=== PATIENT | male | born 1960 | race Caucasian/White ===

== ENCOUNTER 2021-03-28 11:32 | Inpatient (IN) | payer OTHER, SELFPAY ==
[~2021-03-28] VITALS: Ht 177.8 cm; Wt 89.8 kg
[2021-03-28 11:45] VITALS: BP 117/75
[2021-03-28 14:12] LABS: BASOPHILS % (AUTO) 0.4 % (0.0-2.0); EOSINOPHILS # (AUTO) 0.1 K/uL (0-0.4); EOSINOPHILS % (AUTO) 1.4 % (0.0-4.0); HEMATOCRIT 35.4 % (36-52); HEMOGLOBIN 11.4 g/dL (12.0-18.0); LYMPHOCYTES # (AUTO) 2.5 K/uL (2.0-11.5); LYMPHOCYTES % (AUTO) 28.2 % (20.5-51.1); MEAN CORPUSCULAR HEMOGLOBIN 25 pg (27-31); MEAN CORPUSCULAR HGB CONC 32 g/dL (33-37); MEAN CORPUSCULAR VOLUME 77.3 fL (80-94); MONOCYTES # (AUTO) 1.1 K/uL (0.8-1.0); MONOCYTES % (AUTO) 12.6 % (1.7-9.3); NEUTROPHILS % (AUTO) 57.4 % (42.2-75.2); PLATELET COUNT (AUTO) 266 K/uL (140-450); RED BLOOD CELL COUNT(AUTO) 4.58 MIL/uL (4.20-6.10); RED CELL DISTRIBUTION WIDTH 17.5 % (11.6-13.7); WHITE BLOOD COUNT (AUTO) 8.8 K/uL (4.8-10.8)
[2021-03-28 14:34] LABS: ALBUMIN 3.7 g/dL (3.4-5.0); ANION GAP 13.2 (8-16); CARBON DIOXIDE 29.8 mmol/L (21-32); TOTAL BILIRUBIN 0.6 mg/dL (0.0-1.0)
[2021-03-28] MEDS ORDERED: LORazepam 2 MG/ML VIAL IVP ONE (14:40)
[2021-03-28] MEDS ORDERED: PANTOPRAZOLE 40 MG INJ VIAL IVP ONE (14:45)
[2021-03-28] MEDS ORDERED: ONDANSETRON 4 MG/2 ML VIAL IVP ONE (14:45)
[2021-03-28] MEDS ORDERED: PANTOPRAZOLE 80 MG in NACL 0.9% 100 ML IVP SCH (14:45)
[2021-03-28 15:54] LABS: APPEARANCE,URINE CLEAR (CLEAR); BILIRUBIN,URINE NEGATIVE (NEGATIVE); BLOOD, URINE NEGATIVE (NEGATIVE); COLOR,URINE YELLOW (YELLOW); LEUKOCYTE ESTERASE ,URINE NEGATIVE (NEGATIVE); NITRITE, URINE NEGATIVE (NEGATIVE); UGLUCOSE NEGATIVE (NEGATIVE)
[2021-03-28] MEDS ORDERED: PANTOPRAZOLE 40 MG INJ VIAL ONE ×2 (16:11→16:33)
[2021-03-28] MEDS ORDERED: ONDANSETRON 4 MG/2 ML VIAL ONE (16:11)
[2021-03-28] MEDS ORDERED: LORazepam 2 MG/ML VIAL ONE (16:11)
[2021-03-28] MEDS ORDERED: DEXT 5% / NACL 0.45% 1,000 ML IV ONE (16:25)
[2021-03-28] MEDS: PANTOPRAZOLE 80 MG in NACL 0.9% 100 ML IVP SCH (16:43)
--- NOTE | 2021-03-28 17:01 | NUR ---
mrsa and claribel swabbed at this time
[2021-03-28] MEDS ORDERED: ONDANSETRON 4 MG/2 ML VIAL IVP PRN (18:20)
--- NOTE | 2021-03-28 19:26 | NUR ---
resting comfortably, sister at bedside
--- NOTE | 2021-03-28 21:10 | NUR ---
MEDICATED WITH ATIVAN 1 MG SLOW IVP FOR AGITATION
[2021-03-28] MEDS ORDERED: TRAZ-344 PO (23:24)
[2021-03-28] MEDS ORDERED: TAMS0.4C96 PO (23:24)
[2021-03-28] MEDS ORDERED: QUET300T1 PO (23:24)
[2021-03-29] MEDS: PANTOPRAZOLE 80 MG in NACL 0.9% 100 ML IVP SCH ×3 (02:00→15:59)
[2021-03-29] MEDS ORDERED: PANTOPRAZOLE 40 MG INJ VIAL ONE (05:21)
--- NOTE | 2021-03-29 05:55 | NUR ---
AMBULATED TO WITH MUCH ASSIST. HAD BEEN INCONTINENT OF LARGE AMOUNT OF URINE
--- NOTE | 2021-03-29 07:05 | NUR ---
PULLED IV OUT. IS RESTLESS. ATTEMPT TO RESTART X 1, UNABLE
[2021-03-29] MEDS: LORazepam 2 MG/ML VIAL IVP PRN ×3 (08:10→22:00)
[2021-03-29 09:56] LABS: BASOPHILS % (AUTO) 0.4 % (0.0-2.0); EOSINOPHILS # (AUTO) 0.2 K/uL (0-0.4); EOSINOPHILS % (AUTO) 2.2 % (0.0-4.0); HEMATOCRIT 34.8 % (36-52); HEMOGLOBIN 11.1 g/dL (12.0-18.0); LYMPHOCYTES # (AUTO) 1.9 K/uL (2.0-11.5); LYMPHOCYTES % (AUTO) 25.4 % (20.5-51.1); MEAN CORPUSCULAR HEMOGLOBIN 25 pg (27-31); MEAN CORPUSCULAR HGB CONC 32 g/dL (33-37); MEAN CORPUSCULAR VOLUME 78.1 fL (80-94); MONOCYTES # (AUTO) 0.8 K/uL (0.8-1.0); MONOCYTES % (AUTO) 10.8 % (1.7-9.3); NEUTROPHILS # (AUTO) 4.7 K/uL (1.8-7.7); NEUTROPHILS % (AUTO) 61.2 % (42.2-75.2); PLATELET COUNT (AUTO) 227 K/uL (140-450); RED BLOOD CELL COUNT(AUTO) 4.46 MIL/uL (4.20-6.10); RED CELL DISTRIBUTION WIDTH 17.2 % (11.6-13.7); WHITE BLOOD COUNT (AUTO) 7.6 K/uL (4.8-10.8)
[2021-03-29 10:11] LABS: ALBUMIN 3.6 g/dL (3.4-5.0); ANION GAP 12.9 (8-16); POTASSIUM 3.9 mmol/L (3.5-5.1); TOTAL BILIRUBIN 0.6 mg/dL (0.0-1.0)
--- NOTE | 2021-03-29 10:51 | NUR ---
MOVED TO ER BED 11
--- NOTE | 2021-03-29 10:52 | NUR ---
RECEIVED REPORT FROM TREVOR CERON. TRANSFER OF CARE AT THIS TIME.
--- NOTE | 2021-03-29 12:42 | NUR ---
PT ALERT AND ORIENTED. NO DISTRESS NOTED. SISTER AT BEDSIDE.
--- NOTE | 2021-03-29 15:40 | NUR ---
PATIENT HAS BEEN SCREENED AND CATEGORIZED MODERATE NUTRITION RISK. PATIENT WILL BE SEEN WITHIN 3-5 DA[address] OF ADMISSION. [address]
[2021-03-29] MEDS ORDERED: HALOPERIDOL IM 5 MG/ML VIAL IM SCH (17:50)
--- NOTE | 2021-03-29 17:53 | NUR ---
174-PT VERY AGITATED, ATTEMPTING TO RE-ORIENT CAREGIVER AT BEDSIDE. PT PULLED IV. PT SOFT RESTRAINTS. 175-DR. V[place] BRADSHAW HALDOL 2MG IM ORDERED, BEHAVIORAL RESTRAINTS ORDERED.
[2021-03-29] MEDS ORDERED: HALOPERIDOL IM 5 MG/ML VIAL ONE (17:58)
--- NOTE | 2021-03-29 18:22 | NUR ---
PT SLEEPING, VISIBLE EQUAL RISE AND FALL OF CHEST, VSS, WILL CONTINUE TO MONITOR.
--- NOTE | 2021-03-29 19:00 | NUR ---
MRSA SWAB COLLECTED. DROPPED OFF AT LAB. COLLECTED BY [employer].
--- NOTE | 2021-03-29 19:29 | NUR ---
GAVE REPORT TO SUSANNAH MURRAY. TRANSFER OF CARE AT THIS TIME.
--- NOTE | 2021-03-29 19:30 | NUR ---
GAVE REPORT TO TREVOR DILL. TRANSFER OF CARE AT THIS TIME.
--- NOTE | 2021-03-29 22:28 | NUR ---
BEKA CARDENAS LEFT MESSAGE [phone] REQUESTING UPDATE
--- NOTE | 2021-03-29 23:27 | NUR ---
Patient will be admitted to care of DR COLEMAN. Admited to TELE. Will go to room 104. Belongings list completed. Report to BOYD MURRAY.
[2021-03-30] MEDS: LORazepam 2 MG/ML VIAL IVP PRN ×2 (02:30→08:03)
[2021-03-30 02:46] VITALS: BP 125/79
[2021-03-30] MEDS ORDERED: PANTOPRAZOLE 40 MG INJ VIAL ONE (03:21)
--- NOTE | 2021-03-30 07:30 | NUR ---
PATIENT RECEIVED FROM TELEVISION CAMERAMAN NURSE. PT IN BED RESTRAINS ON BED IN LOWEST POSITION, NON SLIP SOCKS ON, ALL SAFETY MEASURES ARE IN PLACE.
--- NOTE | 2021-03-30 07:51 | NUR ---
PT ATTEMPTED TO GET OUT OF BED PULLED OUT R HAND 20 G, PT REORIENTED, PLACED BACK IN BED , BED ALARM ON , NON SLIP SOCKS ON , RESTRAINS EDUCATION PERFORMED NEED REINFORCEMENT , ALL SAFETY MEASURES ARE IN PLACE
[2021-03-30 08:00] VITALS: BP 152/71
--- NOTE | 2021-03-30 08:05 | NUR ---
PATIENT IS AGITATED ATTEMPTING TO GET OUT OF BED , PT EDUCATED REINFORCEMENT NEEDED. PRN MEDICATION GIVEN AT THIS TIME. ALL SAFETY MEASURES ARE IN PLACE
[2021-03-30] MEDS: PANTOPRAZOLE 80 MG in NACL 0.9% 100 ML IVP SCH (08:25)
[2021-03-30 08:53] LABS: ANION GAP 13.3 (8-16); CARBON DIOXIDE 27.3 mmol/L (21-32); POTASSIUM 3.6 mmol/L (3.5-5.1)
[2021-03-30] MEDS ORDERED: diphenhydrAMINE 50 MG/ML VIAL ONE (09:31)
[2021-03-30] MEDS ORDERED: fentaNYL citrate 0.05 MG/ML VIAL ONE (09:31)
[2021-03-30] MEDS ORDERED: MIDAZOLAM 5 MG/5 ML VIAL ONE (09:31)
[2021-03-30] MEDS ORDERED: fentaNYL citrate 0.05 MG/ML VIAL IVP ONE (10:05)
[2021-03-30] MEDS ORDERED: MIDAZOLAM 2 MG/2 ML VIAL IVP ONE (10:05)
--- NOTE | 2021-03-30 10:35 | NUR ---
PATIENT RETURNED FROM PROCEDURE , PATIENT RESTING IN BED NO S/SX OFD DISTRESS AT THI TIME. ALL SAFETY MEASURES ARE IN PLACE.
[2021-03-30 12:00] VITALS: BP 125/88
--- NOTE | 2021-03-30 13:24 | NUR ---
SISTER AT BEDSIDE , DIET CHANGED , KITCHEN CALLED TWO TIMES RE: MEAL TRAY NO ANSWER AT THIS TIME
--- NOTE | 2021-03-30 15:01 | NUR ---
PATIENT ATE ALL FOOD TOLERATED WELL , NO S/SX OF DISTRESS AT THIS TIME
--- NOTE | 2021-03-30 18:00 | NUR ---
PATIENT RESTING IN BED , DISCHARGE INSTRUCTIONS COMPLETE, SISTER VERBALIZED UNDERSTANDING FOR CONTINUITY OF CARE. ll forms signed , iv canula removed , canula intact, ALL SAFETY MEASURES ARE IN PLACE
--- NOTE | 2021-03-30 18:41 | NUR ---
PATIENT LEFT VIA WHEEL CHAIR , PATIENT INSTABLE CONDITION
== END 2021-03-30 18:35 | disposition home or self-care (01) | DRG 378 ==
LOC: MED 11:32 → MTU 16:33
PROVIDERS: ADMIT Preventive Medicine Preventive Medicine/Occupational Environmental Medicine; ATTEND Preventive Medicine Preventive Medicine/Occupational Environmental Medicine
PROC: 0DB68ZX Excision of Stomach, Via Natural or Artificial Opening Endoscopic, Diagnostic (ICD-10-PCS; 2021-03-30)
PROC: 0DB58ZX Excision of Esophagus, Via Natural or Artificial Opening Endoscopic, Diagnostic (ICD-10-PCS; principal; 2021-03-30 10:05)
DX: K92.2 Gastrointestinal hemorrhage, unspecified (principal); F23 Brief psychotic disorder; D64.9 Anemia, unspecified; F31.9 Bipolar disorder, unspecified; K22.70 Barrett's esophagus without dysplasia; K44.9 Diaphragmatic hernia without obstruction or gangrene; Z20.822 Contact with and (suspected) exposure to COVID-19
CPT/HCPCS: 36415; 80048; 80053; 81003; 83690; 85025; 85610; 85730; 86140; 86677; 86886; 86900; 86901; 87081; 96365; 96375; 99285; C9113; J1200; J1630; J2060; J2250; J2405; J3010; J7030